=== PATIENT | female | born 1955 | race African-American/Black ===

== ENCOUNTER → 2017-06-20 | Outpatient (CLI) | payer MEDICARE ==
[~2017-06-20] VITALS: Ht 167.6 cm; Wt 82.6 kg
[~2017-06-20] MED LIST: ALBUTEROL2.5 MG/0.1 INH; ASPIR 8181 MG; COREG25 MG PO; DIOVAN 80 MG TA80 M1; DULERA 200 MCG/13 GM IH; DUONEB 2.5-0.5 M3 ML INH; LANOXIN 0.250.25 M1 PO; MAGNESIUM400 MG PO; PROAIR HFA8.5 GM IH
[2017-06-20 09:52] VITALS: BP 145/80
[2017-06-20 09:55] LABS: HEMOGLOBIN 13.3 gm/dL (12.0-15.0); MCH 29.8 pg (26.0-34.0); MCHC 33.4 g/dL (28.0-37.0); MCV 89.3 fL (80.0-100.0); MPV 11.3 fl. (7.2-11.1); RBC 4.48 mil/uL (4.20-5.00); RDW-CV 13.7 % (10.5-14.5); WBC 7.1 thou/uL (4.0-11.0)
[2017-06-20 09:59] LABS: CREATININE 0.9 mg/dL (0.6-1.3); POTASSIUM 4.1 mmol/L (3.5-5.1)
[2017-06-20 10:01] LABS: APTT 26.6 Seconds (25.0-31.3); INR 1.1; PROTIME 10.6 Seconds (9.20-11.50)
[2017-06-20 12:49] VITALS: BP 128/71
--- NOTE | 2017-06-20 13:04 | EKG ---
[place] [address] ELECTROCARDIOGRAM REPORT Name: CARLY ARNOLD Room: [facility]#: [id number] Admission: 06/20/17 Attend Phys: Maximus Alfonso MD Discharge: Date of : 51 Report #: [id number] THIS REPORT FOR: //name// [facility] Test Date: 2017-06-20 Test Time: 10:01:37 Pat Name: CARLY ARNOLD Department: Room: Gender: F [employer]anger: : 1955 Requested By: Maximus Alfonso Order Number: [id number] Reading MD: Yuval Coyne Measurements Intervals [place] Rate: 78 P: 108 DC: 177 QRS: 257 QRSD: 154 T: 75 QT: 431 QTc: 491 Interpretive Statements Atrial-sensed ventricular-paced rhythm No further analysis attempted due to paced rhythm No previous ECG available for comparison Electronically Signed On 06-20-2017 13:04:07 TITLE COORDINATOR by Yuval Coyne [email or web address] <ELECTRONICALLY SIGNED> By: Yuval Coyne MD, [facility] 06/20/17 1304 1001 1001 Yuval Coyne MD, FACC /EPI
[2017-06-20 13:07] VITALS: BP 137/73
[2017-06-20 13:26] VITALS: BP 133/80
[2017-06-20 13:58] VITALS: BP 134/71
--- NOTE | 2017-06-27 16:23 | CARD ---
[address] [address] CARDIAC CATH REPORT Name: CARLY ARNOLD Room: [facility] Buster#: [id number] Admission: 06/20/17 Attend Phys: Maximus Alfonso MD Discharge: Date of : 51 Report #: [id number] THIS REPORT FOR: //name// APPROVED REPORT Patient Status: Out-Patient Room #: Event Personnel: Maximus Alfonso Facility Sales And Admin, Emily Larios RN, Shonda Salcedo RTR Monitor, Bradford Elmore Scrub Exam: Generator Change for a Bi-Ventricular pacing defibrillator The patient is a 62 year-old female with a history of CHF. Conscious Sedation Fentanyl 50 mcg Implanted Devices: Biotronik Itreviaal 7 HF-T DF-1 model #596958, serial #[id number]. Explanted Devices: Medtronic Protecta XT CRTD model number D3-1-4 GERD, serial number PAF [id number] Procedure The patient underwent informed consent. We discussed the details of the procedure including the risks, which include, but not limited to bleeding, infection, vascular damage, cardiac perforation, and pneumothorax. She understood these risks and was willing to proceed. As such, she was brought to the EP/Cardiac Catheterization laboratory in a fasting and sedated state and prepped and draped in a The patient underwent conscious sedation, with no related complications. The patient was brought to the EP/Cardiac Catheterization laboratory and the left chest and shoulder were prepped and draped in a sterile manner. The left subclavian region was infiltrated with 2% Lidocaine subcutaneous anesthesia. A transverse incision was made in the left upper chest cavity. After an initial incision was made over the existing pulse generator the generator was explanted using electrocautery and blunt dissection. The pacemaker pocket was flushed with antibiotic solution. The existing ICD generator was detached from the RV defibrillator, LV and atrial leads. Lead thresholds and sensing were checked and deemed to be satisfactory. A new biventricular ICD generator was attached to the atrial, right ventricular pacing defibrillator and left ventricular leads. The generator and redundant lead were then replaced within [place] [address] CARDIAC CATH REPORT Name: ARNOLDCARLY DODD Room: [facility]#: [id number] Admission: 06/20/17 Attend Phys: Maximus Alfonso MD Discharge: Date of : 51 Report #: [id number] were closed using interrupted stitches of 2-0 Vicryl. The skin incision was then closed with a single subcuticular stitch of 4-0 Vicryl. Several Steri-Strips were placed across the incision. A sterile Telfa dressing was then covered with a Tegaderm. The patient tolerated procedure well without complication. Electrode Parameters The sensed P-wave was 2.1 mV. Sensed R-wave was 13.1 mV. The sensed LV wave was 11.8 mV. Right atrial pacing threshold was 0.8 V at 0.40 ms. Right ventricular pacing threshold was 0.8 V at 0.40 ms. LV pacing threshold was 0.8 V at 0.40 ms. Right atrial pacing impedance was 389 ohms. LV pacing impedance was 360 ohms. RV pacing impedance was 389 ohms. VF detection rate to 122 bpm. Fast VT detection rate 182 bpm. Slow VT detection rate 154 bpm. VF therapies anti-tach pacing times one followed by 40 J shock times 8. VT 1 therapy monitor only. VT 2 therapies anti-tachycardia pacing 6 followed by anti-tachycardia pacing 6 in ramp style followed by 40 J shock times 8. Complications The patient tolerated the procedure well and there were no complications associated with the procedure. Conclusion 1. Biventricular ICD generator at elective replacement. 2. Successful replacement of biventricular ICD generator. 3. Interrogation of the RV, RA and LV leads show adequate sensing, capture threshold and pacing impedances. Recommendations 1. Follow-up site check in one week. <ELECTRONICALLY SIGNED> By: Maximus Alfonso MD, FACC 06/27/17 1622 [id number] Alfonso MD, FACC /INF
== END | disposition home or self-care (01) ==
LOC: M.CL 09:01
PROVIDERS: Internal Medicine Cardiovascular Disease
DX: Z45.02 Encounter for adjustment and management of automatic implantable cardiac defibrillator (principal); I42.9 Cardiomyopathy, unspecified; I11.0 Hypertensive heart disease with heart failure; I50.22 Chronic systolic (congestive) heart failure; J44.9 Chronic obstructive pulmonary disease, unspecified; E66.09 Other obesity due to excess calories; K21.9 Gastro-esophageal reflux disease without esophagitis; Z90.49 Acquired absence of other specified parts of digestive tract; Z98.890 Other specified postprocedural states; Z88.8 Allergy status to other drugs, medicaments and biological substances; Z79.82 Long term (current) use of aspirin